=== PATIENT | male | born 1970 | race Two or more races ===

== ENCOUNTER 2017-05-15 13:08 | Emergency (ER) | payer MEDICAID ==
[~2017-05-15] VITALS: Ht 170.2 cm; Wt 90.7 kg
[2017-05-15 14:00] VITALS: BP 122/78
[2017-05-15] MEDS ORDERED: Meclizine 25mg tab ORAL PRN (14:15)
--- NOTE | 2017-05-15 15:19 | Emergency Room Report ---
History of Present Illness General Chief Complaint: Vomiting Source: EMS Present Illness HPI 46 YO Male presents to the ED c/o dizziness x 1 days. Described as: the room spinning around him with imbalance, and vomiting/nausea- episodic with movement / change of position, without visual/hearing changes. denies blood in the vomit. no fevers or chills. Pt reports daily BRISCOE that typically is not associated with these new symptoms. denies head trauma/fall. denies hx of dizziness or vertigo, denies ill contacts. denies weakness, or changes in memory or speech. Denies Cardiac Hx.CP, Palpitations, LOC, AMS, Changes in Vision, Sensation, paresthesias, or a sudden severe headache. Allergies: Coded Allergies: No Known Allergies (Unverified , 05/15/17) Patient History Past Medical History: see triage record Past Surgical History: none Pertinent Family History: none Reviewed Nursing Documentation: PMH: Agreed, PSxH: Agreed Nursing Documentation-PMH Past Medical History: No Stated History Review of Systems All Other Systems: negative except mentioned in HPI Physical Exam Vital Signs Date Time Temp Pulse Resp B/P Pulse Ox O2 Delivery O2 Flow Rate FiO2 05/15/17 12:49 97.3 50 20 131/85 96 Room Air Sp02 EP Interpretation: reviewed, abnormal - hr bradycardic on VS, palpated is 64 General Appearance: no apparent distress, alert, GCS 15, non-toxic Head: normocephalic, atraumatic Eyes: bilateral eye PERRL, bilateral eye normal inspection ENT: hearing grossly normal, normal pharynx, no angioedema, normal voice Neck: full range of motion, supple/symm/no masses Respiratory: lungs clear, normal breath sounds, speaking full sentences Cardiovascular #1: regular rate, rhythm, no edema Rectal: deferred Genitourinary: normal inspection Musculoskeletal: back normal, gait/station normal, normal range of motion, non- tender Neurologic: alert, oriented x3, responsive, motor strength/tone normal, sensory intact, speech normal, no pronator, abnormal gait - pt is off balance when trying to walk, nystagmus Psychiatric: judgement/insight normal, memory normal, mood/affect normal Skin: normal color, no rash, warm/dry, well hydrated Medical Decision Making PA Attestation Dr. Haji is my supervising Physician whom patient management has been discussed with. Diagnostic Impression: Primary Impression: Vertigo Additional Impression: Nausea & vomiting Qualified Codes: R11.14 - Bilious vomiting ER Course Pt. presents to the ED c/o dizziness x 1 days. Described as: the room spinning around him with imbalance, and vomiting/nausea- episodic with movement/ change of position, without visual/hearing changes. Ddx considered but are not limited to Mnire's, BPPV, labrinitis, cerebellar stroke, hypovolemia, cardiac cause. Vital signs: are WNL, pt. is afebrile H&PE are most consistent with : BRISCOE in the presence of acute onset vertigo and nystagmus ORDERS: -CT head no contrast- negative for ICH, EDEMA, or mass per official radiology read ED INTERVENTIONS: - ZOfran -Meclizine PO - D/w pt. results of imaging, and that he will be d/c with medications for his symptoms. d/w pt. to promptly return to the ED with worsening or new symptoms, or if his symptoms do not resolve with prescribed medications. DISCHARGE: At this time pt. is stable for d/c to home. Will provide printed patient care instructions, and any necessary prescriptions. Care plan and follow up instructions have been discussed with the patient prior to discharge. Last Vital Signs Date Time Temp Pulse Resp B/P Pulse Ox O2 Delivery O2 Flow Rate FiO2 05/15/17 12:49 97.3 50 20 131/85 96 Room Air Disposition: HOME, SELF-CARE Condition: Stable Scripts Acetaminophen* (TYLENOL EXTRA STRENGTH*) 500 Mg Tablet 500 MG ORAL Q6H, #20 TAB 0 Refills Prov: Saira Stanford 05/15/17 Ondansetron Odt* (ZOFRAN ODT*) 4 Mg Tab.rapdis 4 MG ORAL Q6H Y for Nausea & Vomiting, #12 TAB Prov: Saira Stanford.A. 05/15/17 Meclizine Hcl* (VERTICALM*) 25 Mg Tablet 25 MG ORAL THREE TIMES A DAY, #20 TAB Prov: Saira Stanford P.A. 05/15/17 Referrals: NOT CHOSEN IPA/MD,REFERRING (PCP) Patient Instructions: Nausea and Vomiting, Adult, Vertigo, [id number] Additional Instructions: Take medications as directed. Follow up with a Primary Care Provider in 3-5 days, even if your symptoms have resolved. --Please review list of primary care clinics, if you do not already have a primary care provider Return sooner to ED if new symptoms occur, or current symptoms become worse. Do not drink alcohol, drive, or operate heavy machinery while taking [ ] as this may cause drowsiness. - Please note that this Emergency Department Report was dictated using [employer] technology software, occasionally this can lead to erroneous entry secondary to interpretation by the dictation equipment. Saira Stanford May 15, 2017 15:19
[2017-05-15] MEDS ORDERED: ZOFRAN ODT4 MG ORAL (15:37)
[2017-05-15] MEDS ORDERED: TYLENOL EXTRA500 MG ORAL (15:37)
[2017-05-15] MEDS ORDERED: VERTICALM25 MG ORAL (15:37)
--- NOTE | 2017-05-15 23:56 | Diagnostic Imaging Report ---
Indication: Head pain Technique: Continuous helical CT scanning of the head was performed without intravenous contrast material. Axial and coronal 5 mm sections were generated. Radiation dose was minimized using automated exposure control Dose: Total Dose Length Product - DLP [address] Dose Index - CTDIvol(s) 70.38 mGy. Comparison: None Findings: The ventricular system is normal in size and configuration. There is no shift of midline structures. No abnormal extra-axial fluid collections are noted. There is no evidence of intracerebral bleeding. No other abnormal high or low density areas are noted within the brain. Visualized orbits and sinuses are unremarkable. The mastoids are clear. The calvarium is intact. Impression: Normal CT scan of the head without contrast material. The CT scanner at [facility] is accredited by the [employer] and the scans are performed using protocols designed to limit radiation exposure to as low as reasonably achievable to attain images of sufficient resolution adequate for diagnostic evaluation.
== END 2017-05-15 14:00 | disposition home or self-care (01) ==
LOC: EDBD 13:08 → EDSEX 13:08 → EMR 13:33
DX: R42 Dizziness and giddiness (principal); R11.14 Bilious vomiting; R51 Headache
CPT/HCPCS: 70450; 99284